=== PATIENT | male | born 1955 | race Two or more races ===

== ENCOUNTER 2018-03-04 12:30 | Inpatient (IN) | payer OTHER ==
[~2018-03-04] VITALS: Ht 160 cm; Wt 69.4 kg
[2018-03-04] MEDS ORDERED: CATAFLAN (14:18)
[2018-03-04] MEDS ORDERED: BETA (14:19)
== END 2018-03-15 17:43 | disposition home or self-care (01) | DRG 330 ==
LOC: EDUNIT# 12:30 → SURH 03-08 06:56 → O/R 03-08 06:56 → EDBD 03-08 12:30 → SURG-SUITE 03-08 12:30 → SURH 03-08 16:59
PROVIDERS: Colon & Rectal Surgery
PROC: 07TC4ZZ Resection of Pelvis Lymphatic, Percutaneous Endoscopic Approach (ICD-10-PCS; 2018-03-08)
PROC: 0WQF4ZZ Repair Abdominal Wall, Percutaneous Endoscopic Approach (ICD-10-PCS; 2018-03-08)
PROC: 0DTG4ZZ Resection of Left Large Intestine, Percutaneous Endoscopic Approach (ICD-10-PCS; principal; 2018-03-08 12:15)
PROC: BW21ZZZ Computerized Tomography (CT Scan) of Abdomen and Pelvis (ICD-10-PCS; 2018-03-13)
DX: C18.6 Malignant neoplasm of descending colon (principal); C18.7 Malignant neoplasm of sigmoid colon; K56.0 Paralytic ileus; R59.0 Localized enlarged lymph nodes; D64.89 Other specified anemias; K43.9 Ventral hernia without obstruction or gangrene

== ENCOUNTER 2018-03-06 07:33 | Day surgery (SDC) | payer OTHER ==
[~2018-03-06 07:33] MED LIST: BETA; CATAFLAN
== END 2018-03-06 16:04 | disposition home or self-care (01) ==
LOC: AMB-ENDOS 07:33 → EDBD 13:15 → AMB-ENDOS 16:04
DX: D12.3 Benign neoplasm of transverse colon (principal); K63.5 Polyp of colon

== ENCOUNTER 2018-11-08 07:29 | Day surgery (SDC) | payer OTHER | END 2018-11-08 12:39 | disposition home or self-care (01) | LOC: AMB-ENDOS 07:29 | DX: K64.1 Second degree hemorrhoids (principal) ==